=== PATIENT | female | born 1990 | race Two or more races ===

== ENCOUNTER 2018-02-09 20:58 | Emergency (ER) | payer SELFPAY ==
[2018-02-09] MEDS: LORAZEPAM 1 MG TAB PO (23:10)
== END 2018-02-10 00:15 | disposition home or self-care (01) ==
LOC: FTE 02-10 00:15
DX: F41.9 Anxiety disorder, unspecified (principal)
CPT/HCPCS: 71045; 93005; 99284-25

== ENCOUNTER 2019-01-22 18:34 | Emergency (ER) | payer OTHER | END 2019-01-22 20:11 | disposition home or self-care (01) | LOC: FTE 18:34 | DX: M25.561 Pain in right knee (principal) | CPT/HCPCS: 99282 ==